=== PATIENT | female | born 1955 | race Caucasian/White ===

== ENCOUNTER 2016-08-12 11:00 | Inpatient (IN) | payer OTHER ==
[2016-08-16] MEDS ORDERED: CEFAZOLIN SODIUM 1 GM in NORMAL SALINE MINI-BAG+ 100 ML IV ONE (10:23)
[2016-08-17] MEDS ORDERED: MORPHINE SULFATE 4 MG/ML SYR ONE (07:11)
[2016-08-17] MEDS ORDERED: ROPIVACAINE HCL 0.5% 30 ML ONE (07:12)
[2016-08-17] MEDS ORDERED: BACITRACIN 50,000 UNITS VIAL IM ONE (07:12)
[2016-08-17] MEDS ORDERED: KETOROLAC TROMETHAMINE 30 MG/ML VIAL ONE (07:12)
[2016-08-17] MEDS ORDERED: MIDAZOLAM HCL 2 MG/2 ML VIAL ONE ×2 (07:14→13:10)
[2016-08-17] MEDS ORDERED: FAMOTIDINE IN SALINE, ISO-OSM 50 ML IV ONE (07:14)
[2016-08-17] MEDS ORDERED: TRANEXAMIC ACID 1,000 MG/10 ML VIAL IV ONE (07:14)
[2016-08-17] MEDS ORDERED: CEFAZOLIN SODIUM 1 GM/10 ML VIAL ONE ×3 (07:14→16:41)
[2016-08-17] MEDS ORDERED: TETRACAINE HCL 1% 20 MG/2 ML AMP ONE ×2 (07:18→13:27)
[2016-08-17] MEDS ORDERED: FENTANYL 100 MCG/2 ML VIAL ONE (07:18)
[2016-08-17] MEDS: MIDAZOLAM HCL 2 MG/2 ML SYR IV ONE ×2 (07:40→13:14)
[2016-08-17] MEDS ORDERED: CEFAZOLIN SODIUM 1 GM in NORMAL SALINE MINI-BAG+ 100 ML IV ONE ×2 (07:42→15:33)
[2016-08-17] MEDS ORDERED: LIDOCAINE HCL 1% 20 ML VIAL SUBCUT ONE ×2 (07:42→15:33)
[2016-08-17] MEDS ORDERED: HYDROmorphone HCL 1 MG/ML SYR ONE (07:44)
[2016-08-17] MEDS ORDERED: FAMOTIDINE IN SALINE, ISO-OSM 20 MG/50 ML PIGGYBACK IV SCH (07:45)
[2016-08-17] MEDS ORDERED: LACTATED RINGERS 1,000 ML IV SCH ×2 (08:00→15:33)
[2016-08-17] MEDS ORDERED: EPHEDrine SULFATE 50 MG/ML VIAL ONE ×3 (08:34→14:22)
[2016-08-17] MEDS ORDERED: TRANEXAMIC ACID 1,000 MG in NORMAL SALINE 100 ML IV SCH ×2 (09:00)
[2016-08-17] MEDS ORDERED: HYDROmorphone HCL 1 MG/ML SYR IV PRN ×2 (15:31→15:33)
[2016-08-17] MEDS ORDERED: NALBUPHINE HCL 10 MG/ML AMP IV PRN ×4 (15:31→18:16)
[2016-08-17] MEDS ORDERED: ONDANSETRON HCL 4 MG/2 ML VIAL IV PRN ×3 (15:31→18:16)
[2016-08-17] MEDS ORDERED: NALOXONE HCL 0.4 MG/ML VIAL IV PRN ×12 (15:31→18:16)
[2016-08-17] MEDS ORDERED: DIPHENHYDRAMINE 25 MG CAPSULE PO PRN ×4 (15:31→18:16)
[2016-08-17] MEDS ORDERED: DIPHENHYDRAMINE 50 MG/ML VIAL IV PRN ×4 (15:31→18:16)
[2016-08-17] MEDS ORDERED: MORPHINE SULFATE 10 MG/ML SYR IV PRN ×2 (15:31→15:33)
[2016-08-17] MEDS ORDERED: FENTANYL 100 MCG/2 ML VIAL IV PRN ×2 (15:31→15:33)
[2016-08-17] MEDS ORDERED: LABETALOL HCL 100 MG/20 ML VIAL IV ONE (16:14)
[2016-08-17] MEDS ORDERED: NORMAL SALINE FLUSH 10 ML ONE (16:41)
[2016-08-17] MEDS ORDERED: ACETAMINOPHEN 325 MG TABLET PO PRN (18:16)
[2016-08-17] MEDS ORDERED: ONDANSETRON HCL 4 MG/2 ML VIAL ONE (18:17)
[2016-08-17] MEDS: CEFAZOLIN SODIUM 1 GM in NORMAL SALINE MINI-BAG+ 100 ML IV SCH (19:47)
[2016-08-17] MEDS: DEXTROSE 5% LACTATED RINGERS 1,000 ML IV SCH (19:59)
[2016-08-17] MEDS: ASCORBIC ACID 500 MG TABLET PO SCH (20:14)
[2016-08-17] MEDS: DOCUSATE SODIUM 100 MG CAPSULE PO SCH (20:14)
[2016-08-18] MEDS: CEFAZOLIN SODIUM 1 GM in NORMAL SALINE MINI-BAG+ 100 ML IV SCH ×2 (03:14→09:32)
[2016-08-18 05:37] LABS: BASOPHILS 0.3 % (0.0-2.0); EOSINOPHILS 0.1 % (0.0-6.0); HEMATOCRIT 31.6 % (36.0-48.0); HEMOGLOBIN 10.1 g/dL (12.0-16.0); LYMPHOCYTES 8.2 % (20.0-40.0); LYMPHOCYTES# 0.7 X 10^3uL (0.8-3.8); MEAN CELL VOLUME 94.7 fL (80.0-100.0); MEAN CORPUS. HGB CONCENTRATION 31.8 g/dL (32.0-36.0); MEAN CORPUSCULAR HEMOGLOBIN 30.1 pg (29.0-35.0); MEAN PLATELET VOLUME 7.6 fL (7.4-10.4); MONOCYTES 5.7 % (2.0-10.0); MONOCYTES# 0.5 X 10^3uL (0.2-1.0); NEUTROPHILS# 7.6 X 10^3uL (2.6-6.7); RED BLOOD COUNT 3.34 X 10^6uL (4.20-6.10); WHITE BLOOD COUNT 8.8 X 10^3uL (3.9-10.7)
[2016-08-18 05:50] LABS: NEUTROPHILS 85.7 % (54.0-75.0)
--- NOTE | 2016-08-18 07:06 | OPERATIVE REPORT ---
DATE OF SURGERY: 08/17/16 SURGEON: Say Horner DO ANESTHESIA: Spinal and general. PREOPERATIVE DIAGNOSIS: Right hip osteoarthritis. POSTOPERATIVE DIAGNOSIS: Right hip osteoarthritis. OPERATION PERFORMED: Right total hip arthroplasty. SPECIMENS REMOVED: Diseased bone and cartilage. ESTIMATED BLOOD LOSS: 200 mL. COMPLICATIONS: None. ORTHOPEDIC IMPLANTS 1. [employer] Biolox Delta hip system modular ceramic head plus 6 neck size 36 head alumina zirconia (ceramic) head. 2. [employer] taper lock hip system lateralized femoral stem, full distal profile porous plasma hydroxyapatite titanium alloy, size 12.5 x 145 mm. 3. [employer] G7 acetabular shell 3-hole porous plasma 52 mm size shell , liner size E. 4. [employer] G7 acetabular liner high wall E1 antioxidant infused technology 36 mm head size liner size E. 5. [employer] G7 acetabular screw 6.5 mm diameter 30 mm length, titanium alloy. PROCEDURE NOTE: The patient was brought to the operating room suite and after administration of spinal and anesthesia the left right extremity was prepped and draped in a sterile fashion. All bony prominences were well padded with 4 pillow between and around the legs. The patient was positioned on the peg board. A curvilinear incision was made in a modified Southern approach over the right posterior hip after first injecting 0.25% bupivacaine with epinephrine. Dissection was carried through the Campers fascia to the IT band gluteal muscular which were split longitudinally in line with their fibers. The trochanteric bursa tissue was removed to reveal the short external rotators which were incised and tagged for later repair. The capsule was Td open and the hip was dislocated. Prior to dislocating the hip, the length of the hip was measured to a agnieszka made on the greater trochanter and a Steinmann inserted superior to the acetabulum in the pelvis. This measurement was 52 mm. The preoperative template measured 60 mm from the femoral head center to the lesser trochanter on its most superior aspect. Utilizing a cutting jig, the femoral neck cut was marked and completed. The head was sized, and the acetabular reamers were used and the appropriate bone defects were made in the acetabulum with optimal version after first removing the labral tissue. The acetabulum was reamed in anatomic version. The trial cup was inserted with the appropriate size , followed by removal, pulsatile irrigation with bacitracin infused normal saline and subsequent implantation of the prosthetic cup. A predrilled and measured screw was inserted in the superior quadrant and a man-hole cover was inserted in the cup. A trial cup liner was secured in place. Retractors were removed and attention was then drawn towards the femoral neck. Appropriate bone defects were made in the femoral neck including box osteotome, sharp canal finder, followed by a series of broaches up to an appropriate size taper fit broach. Trial implants were switched in and out until optimal stability was obtained with a high off-set neck and a plus 6 head. With this inserted, the patient had greater than 45 degrees of internal rotation, with the hip and knee flexed at 90 degrees, and this was with a normal wall acetabulum. The trial implants were removed and the operative site was copiously irrigated with pulsatile bacitracin infused with normal saline. At this point the hip capsule and surrounding soft tissues were injected with a cocktail containing 150 mg of ropivacaine, 15 mg of Ketoralac, 0.3 mg epinephrine, and 4 mg morphine sulfate in a total volume of 60 mL, making up the difference utilizing 0.9% normal saline. The final implants were inserted. The femoral stem was then inserted, followed by the ceramic head. A high wall cup was utilized for added stability in this obese patient. The hip was again taken through a full range of motion and was noted to be exceptionally stable with greater than 60 degrees of internal rotation with the hip and knee flexed in 90 degrees before any subluxation of the head within the acetabulum was palpated with digital monitoring on the prosthetic joint. There was a 2 mm shuck. The hip was copiously irrigated with bacitracin infused with normal saline and closed in a stepwise fashion utilizing #2 Fiberwire for the short external rotators, which were repaired through drill holes through the greater trochanter after the T in the capsule was repaired and sewn shut. The short external rotators were repaired with the hip in external rotation. The remainder of the closure was performed utilizing #2 Fiberwire and #1 pop offs intermittently on the IT band and gluteal fascia. The Campers fascia and subsequent layers were closed with #1 Vicryl, followed by 0 Vicryl, followed by 2-0 Vicryl, followed by 4-0 Monocryl subcutaneously, followed by application of Dermabond on the skin. An occlusive silver impregnated dressing was applied. A Cryo-Cuff was then fitted on the patient's hip, followed by an abduction pillow. The patient was carefully rolled from the OR table onto the hospital bed and transferred to the recovery room in stable condition. The patient did receive 1 gram of tranexamic acid at the time of incision, and received a second gram of tranexamic acid IV at the commencement of closure. AARON
--- NOTE | 2016-08-18 07:22 | RADIOLOGY REPORT ---
Limited portable views of the right hip are compared with prior films dated 12/17. There has been interval placement of right total hip arthroplasty. Components appear intact and in appropriate position. No other change is identified. IMPRESSION: Interval right total hip arthroplasty. [facility]
[2016-08-18] MEDS: HYDROcodone/APAP 5/325 MG 1 TAB TABLET PO PRN ×3 (09:29→17:18)
[2016-08-18] MEDS: FOLIC ACID 1 MG TABLET PO SCH (09:30)
[2016-08-18] MEDS: ASCORBIC ACID 500 MG TABLET PO SCH ×2 (09:30→20:56)
[2016-08-18] MEDS: MULTIVITAMINS THERAPEUTIC 1 TABLET PO SCH (09:31)
[2016-08-18] MEDS: POLYETHYLENE GLYCOL 3350 17 GM POWD.PACK PO SCH (09:31)
[2016-08-18] MEDS: BISACODYL 5 MG TABLET PO SCH (09:32)
[2016-08-18] MEDS: DOCUSATE SODIUM 100 MG CAPSULE PO SCH ×2 (09:32→20:56)
[2016-08-18] MEDS: DEXTROSE 5% LACTATED RINGERS 1,000 ML IV SCH ×2 (10:33→21:24)
[2016-08-18] MEDS ORDERED: CYCLOBENZAPRINE HCL 10 MG TABLET PO PRN (10:50)
[2016-08-18] MEDS: ACETAMINOPHEN 325 MG TABLET PO PRN ×2 (14:56→21:55)
[2016-08-18] MEDS: ENOXAPARIN SODIUM 40 MG/0.4 ML SYR SUBCUT SCH (18:48)
[2016-08-18] MEDS: CYCLOBENZAPRINE HCL 10 MG TABLET PO PRN ×2 (18:48→22:08)
[2016-08-19] MEDS: HYDROcodone/APAP 5/325 MG 1 TAB TABLET PO PRN ×4 (01:35→22:12)
--- NOTE | 2016-08-19 06:15 | PROGRESS NOTE: Orthopedics ---
Orthopedic PN Subjective - Subjective Principal Diagnosis: s/p Right Total Hip Arthroplasty Post-op Day: 1 Interval history: Pt seen and examined at bedside on August 18. Doing well with pain control. Well with physical therapy. Receiving DVT and ABX PPX. Ortho PN Objective Exam - Latest Vital Signs and I&O Latest Vital Signs/I&O: Vital Signs Temp 37.3 C 08/19/16 06:08 Pulse 93 H 08/19/16 06:08 Resp 18 08/19/16 06:08 BP 99/61 08/19/16 06:08 Pulse Ox 92 08/19/16 06:08 Intake & Output 08/18/16 08/19/16 08/19/16 17:59 05:59 17:59 Intake Total 1400 Output Total 2000 Balance -600 Weight 81.647 kg Intake: IV 1000 Right Hand 1000 Oral 400 Output: Urine 2000 Other: Urine Appearance Clear Clear Urine Color Straw Straw Voiding Method Indwelling Catheter Indwelling Catheter - Post-Operative Exam Post-op Day: 1 Dressing Status: dry & intact Distal Pulses: +2 Active Motor: intact Sensation: intact Lio's sign: Negative Calf tenderness: no Weight bearing status: as tolerated - Lab Labs: Laboratory Last Values WBC 8.8 X 10^3uL (3.9-10.7) 08/18/16 05:00 RBC 3.34 X 10^6uL (4.20-6.10) L 08/18/16 05:00 Hgb 10.1 g/dL (12.0-16.0) L 08/18/16 05:00 Hct 31.6 % (36.0-48.0) L 08/18/16 05:00 MCV 94.7 fL (80.0-100.0) 08/18/16 05:00 MCH 30.1 pg (29.0-35.0) 08/18/16 05:00 MCHC 31.8 g/dL (32.0-36.0) L 08/18/16 05:00 RDW 14.0 % (11.5-14.5) 08/18/16 05:00 Plt Count 435 X 10^3uL (130-440) 08/18/16 05:00 MPV 7.6 fL (7.4-10.4) 08/18/16 05:00 Neutrophils % 85.7 % (54.0-75.0) H 08/18/16 05:00 Lymphocytes % 8.2 % (20.0-40.0) L 08/18/16 05:00 Eosinophils % 0.1 % (0.0-6.0) 08/18/16 05:00 Basophils % 0.3 % (0.0-2.0) 08/18/16 05:00 Neutrophils # 7.6 X 10^3uL (2.6-6.7) H 08/18/16 05:00 Lymphocytes # 0.7 X 10^3uL (0.8-3.8) L 08/18/16 05:00 Monocytes 5.7 % (2.0-10.0) 08/18/16 05:00 Monocytes # 0.5 X 10^3uL (0.2-1.0) 08/18/16 05:00 Eosinophils # 0.0 X 10^3uL (0.0-0.4) 08/18/16 05:00 Basophils # 0.0 X 10^3uL (0.0-0.1) 08/18/16 05:00 Capillary INR 0.9 (0.8-1.2) 08/17/16 06:15 - Allied Health Notes Allied health notes reviewed: nursing, PT Assessment and Plan-Ortho - Date of Encounter Date of Encounter: 08/19/16 (1) S/P total hip arthroplasty Status: Acute Assessment and plan: Pt will continue with PT. Oral analgesia. DVT PPX. OOB TID. Ambulate. d/c Markham. Current Visit: Yes Quality Questions - VTE Prophylaxis Assessment VTE Present on Admission?: No Patient at risk for venous thromboembolism?: Yes VTE Risk Level: High Risk VTE Medical Contraindication: Contraindicated (1) S/P total hip arthroplasty Qualifiers: Laterality: right Qualified Code(s): Z96.641 - Presence of right artificial hip joint
[2016-08-19 07:24] LABS: BASOPHILS 0.3 % (0.0-2.0); EOSINOPHILS 0.3 % (0.0-6.0); HEMATOCRIT 27.8 % (36.0-48.0); HEMOGLOBIN 9.5 g/dL (12.0-16.0); LYMPHOCYTES 7.2 % (20.0-40.0); LYMPHOCYTES# 0.8 X 10^3uL (0.8-3.8); MEAN CELL VOLUME 95.1 fL (80.0-100.0); MEAN CORPUS. HGB CONCENTRATION 34.2 g/dL (32.0-36.0); MEAN CORPUSCULAR HEMOGLOBIN 32.5 pg (29.0-35.0); MEAN PLATELET VOLUME 7.7 fL (7.4-10.4); MONOCYTES 5.5 % (2.0-10.0); MONOCYTES# 0.6 X 10^3uL (0.2-1.0); NEUTROPHILS 86.7 % (54.0-75.0); NEUTROPHILS# 9.5 X 10^3uL (2.6-6.7); RED BLOOD COUNT 2.93 X 10^6uL (4.20-6.10); WHITE BLOOD COUNT 10.9 X 10^3uL (3.9-10.7)
[2016-08-19 08:00] LABS: RED CELL DISTRIBUTION WIDTH 14.1 % (11.5-14.5)
[2016-08-19] MEDS: ASCORBIC ACID 500 MG TABLET PO SCH ×2 (08:31→21:46)
[2016-08-19] MEDS: DOCUSATE SODIUM 100 MG CAPSULE PO SCH ×2 (08:31→21:46)
[2016-08-19] MEDS: MULTIVITAMINS THERAPEUTIC 1 TABLET PO SCH (08:31)
[2016-08-19] MEDS: FOLIC ACID 1 MG TABLET PO SCH (08:31)
[2016-08-19] MEDS: BISACODYL 5 MG TABLET PO SCH (08:31)
[2016-08-19] MEDS: ENOXAPARIN SODIUM 40 MG/0.4 ML SYR SUBCUT SCH (08:31)
[2016-08-19] MEDS: POLYETHYLENE GLYCOL 3350 17 GM POWD.PACK PO SCH (08:33)
[2016-08-19] MEDS: CYCLOBENZAPRINE HCL 10 MG TABLET PO PRN ×2 (10:57→21:46)
--- NOTE | 2016-08-19 17:38 | PROGRESS NOTE: Orthopedics ---
Orthopedic PN Subjective - Subjective Principal Diagnosis: s/p LILLIAN Post-op Day: 2 Interval history: The patient was seen and examined this morning. The patient has been doing well. She has been ambulating well with physical therapy. Pain has been well controlled. Receiving DVT PPX. Ortho PN Objective Exam - Latest Vital Signs and I&O Latest Vital Signs/I&O: Vital Signs Temp 37.7 C H 08/19/16 15:00 Pulse 78 08/19/16 15:00 Resp 20 08/19/16 15:00 BP 115/68 08/19/16 15:00 Pulse Ox 88 L 08/19/16 15:00 Intake & Output 08/18/16 08/19/16 08/19/16 17:59 05:59 17:59 Intake Total 1400 2883 Output Total 2000 1050 0 Balance -600 1833 0 Weight 81.647 kg Intake: IV 1000 1982 Right Hand 1000 1982 Oral 400 900 Output: Urine 2000 1050 Stool 0 0 Other: Urine Appearance Clear Clear Clear Urine Color Straw Yellow Yellow Voiding Method Indwelling Catheter Indwelling Catheter Indwelling Catheter - Post-Operative Exam Post-op Day: 2 Dressing Status: dry & intact Drainage Amount: none Distal Pulses: +2 Active Motor: intact Sensation: intact Lio's sign: Negative Calf tenderness: no Weight bearing status: as tolerated - Lab Labs: Laboratory Last Values WBC 10.9 X 10^3uL (3.9-10.7) H 08/19/16 05:00 RBC 2.93 X 10^6uL (4.20-6.10) L 08/19/16 05:00 Hgb 9.5 g/dL (12.0-16.0) L 08/19/16 05:00 Hct 27.8 % (36.0-48.0) L 08/19/16 05:00 MCV 95.1 fL (80.0-100.0) 08/19/16 05:00 MCH 32.5 pg (29.0-35.0) 08/19/16 05:00 MCHC 34.2 g/dL (32.0-36.0) 08/19/16 05:00 RDW 14.1 % (11.5-14.5) 08/19/16 05:00 Plt Count 358 X 10^3uL (130-440) 08/19/16 05:00 MPV 7.7 fL (7.4-10.4) 08/19/16 05:00 Neutrophils % 86.7 % (54.0-75.0) H 08/19/16 05:00 Lymphocytes % 7.2 % (20.0-40.0) L 08/19/16 05:00 Eosinophils % 0.3 % (0.0-6.0) 08/19/16 05:00 Basophils % 0.3 % (0.0-2.0) 08/19/16 05:00 Neutrophils # 9.5 X 10^3uL (2.6-6.7) H 08/19/16 05:00 Lymphocytes # 0.8 X 10^3uL (0.8-3.8) 08/19/16 05:00 Monocytes 5.5 % (2.0-10.0) 08/19/16 05:00 Monocytes # 0.6 X 10^3uL (0.2-1.0) 08/19/16 05:00 Eosinophils # 0.0 X 10^3uL (0.0-0.4) 08/19/16 05:00 Basophils # 0.0 X 10^3uL (0.0-0.1) 08/19/16 05:00 Capillary INR 0.9 (0.8-1.2) 08/17/16 06:15 - Allied Health Notes Allied health notes reviewed: nursing, PT Assessment and Plan-Ortho - Date of Encounter Date of Encounter: 08/19/16 (1) S/P total hip arthroplasty Status: Acute Assessment and plan: Pt will continue with PT. Oral analgesia. DVT PPX. OOB TID. Ambulate TID. Current Visit: Yes (1) S/P total hip arthroplasty Qualifiers: Laterality: right Qualified Code(s): Z96.641 - Presence of right artificial hip joint
[2016-08-19] MEDS: ACETAMINOPHEN 325 MG TABLET PO PRN (18:53)
[2016-08-20 06:04] LABS: BASOPHILS 0.4 % (0.0-2.0); EOSINOPHILS 0.9 % (0.0-6.0); EOSINOPHILS# 0.1 X 10^3uL (0.0-0.4); HEMATOCRIT 25.1 % (36.0-48.0); HEMOGLOBIN 8.5 g/dL (12.0-16.0); LYMPHOCYTES 10.3 % (20.0-40.0); MEAN CELL VOLUME 94.4 fL (80.0-100.0); MEAN CORPUS. HGB CONCENTRATION 33.7 g/dL (32.0-36.0); MEAN CORPUSCULAR HEMOGLOBIN 31.9 pg (29.0-35.0); MEAN PLATELET VOLUME 7.7 fL (7.4-10.4); MONOCYTES 5.4 % (2.0-10.0); MONOCYTES# 0.5 X 10^3uL (0.2-1.0); NEUTROPHILS# 8.2 X 10^3uL (2.6-6.7); RED BLOOD COUNT 2.66 X 10^6uL (4.20-6.10); WHITE BLOOD COUNT 9.9 X 10^3uL (3.9-10.7)
[2016-08-20 06:40] LABS: RED CELL DISTRIBUTION WIDTH 13.9 % (11.5-14.5)
[2016-08-20] MEDS: MULTIVITAMINS THERAPEUTIC 1 TABLET PO SCH (08:11)
[2016-08-20] MEDS: DOCUSATE SODIUM 100 MG CAPSULE PO SCH ×2 (08:11→21:01)
[2016-08-20] MEDS: ASCORBIC ACID 500 MG TABLET PO SCH ×2 (08:11→21:01)
[2016-08-20] MEDS: FOLIC ACID 1 MG TABLET PO SCH (08:12)
[2016-08-20] MEDS: BISACODYL 5 MG TABLET PO SCH (08:12)
[2016-08-20] MEDS: HYDROcodone/APAP 5/325 MG 1 TAB TABLET PO PRN ×2 (08:13→14:11)
[2016-08-20] MEDS: ENOXAPARIN SODIUM 40 MG/0.4 ML SYR SUBCUT SCH (08:13)
[2016-08-20] MEDS: POLYETHYLENE GLYCOL 3350 17 GM POWD.PACK PO SCH (08:13)
--- NOTE | 2016-08-20 13:13 | PROGRESS NOTE: Orthopedics ---
Orthopedic PN Subjective - Subjective Principal Diagnosis: s/p Right LILLIAN Post-op Day: 3 Interval history: the patient has been doing well. She is still having some difficulty with transfers. Ambulating well. Pain is controlled. Markham discontinued. Ortho PN Objective Exam - Latest Vital Signs and I&O Latest Vital Signs/I&O: Vital Signs Temp 36.8 C 08/20/16 11:00 Pulse 82 08/20/16 11:00 Resp 12 08/20/16 11:00 BP 117/67 08/20/16 11:00 Pulse Ox 97 08/20/16 11:00 Intake & Output 08/19/16 08/20/16 08/20/16 17:59 05:59 17:59 Intake Total 1200 1010 Output Total 1000 1900 0 Balance 200 -890 0 Intake: IV 10 Right Hand 10 Oral 1200 1000 Output: Urine 1000 1900 Stool 0 0 0 Other: Urine Appearance Clear Clear Clear Urine Color Yellow Pale Pale Voiding Method Indwelling Catheter Indwelling Catheter Toilet - Post-Operative Exam Post-op Day: 3 Dressing Status: dry & intact Distal Pulses: +2 Active Motor: intact Sensation: intact Lio's sign: Negative Calf tenderness: no Weight bearing status: as tolerated - Lab Labs: Laboratory Last Values WBC 9.9 X 10^3uL (3.9-10.7) 08/20/16 05:00 RBC 2.66 X 10^6uL (4.20-6.10) L 08/20/16 05:00 Hgb 8.5 g/dL (12.0-16.0) L 08/20/16 05:00 Hct 25.1 % (36.0-48.0) L 08/20/16 05:00 MCV 94.4 fL (80.0-100.0) 08/20/16 05:00 MCH 31.9 pg (29.0-35.0) 08/20/16 05:00 MCHC 33.7 g/dL (32.0-36.0) 08/20/16 05:00 RDW 13.9 % (11.5-14.5) 08/20/16 05:00 Plt Count 341 X 10^3uL (130-440) 08/20/16 05:00 MPV 7.7 fL (7.4-10.4) 08/20/16 05:00 Neutrophils % 83.0 % (54.0-75.0) H 08/20/16 05:00 Lymphocytes % 10.3 % (20.0-40.0) L 08/20/16 05:00 Eosinophils % 0.9 % (0.0-6.0) 08/20/16 05:00 Basophils % 0.4 % (0.0-2.0) 08/20/16 05:00 Neutrophils # 8.2 X 10^3uL (2.6-6.7) H 08/20/16 05:00 Lymphocytes # 1.0 X 10^3uL (0.8-3.8) 08/20/16 05:00 Monocytes 5.4 % (2.0-10.0) 08/20/16 05:00 Monocytes # 0.5 X 10^3uL (0.2-1.0) 08/20/16 05:00 Eosinophils # 0.1 X 10^3uL (0.0-0.4) 08/20/16 05:00 Basophils # 0.0 X 10^3uL (0.0-0.1) 08/20/16 05:00 Capillary INR 0.9 (0.8-1.2) 08/17/16 06:15 - Allied Health Notes Allied health notes reviewed: nursing, PT Assessment and Plan-Ortho - Date of Encounter Date of Encounter: 08/20/16 (1) S/P total hip arthroplasty Status: Acute Assessment and plan: Pt will continue with PT. Oral analgesia. DVT PPX. OOB TID. Ambulate TID. Likely D/C home in AM tomorrow. Current Visit: Yes (1) S/P total hip arthroplasty Qualifiers: Laterality: right Qualified Code(s): Z96.641 - Presence of right artificial hip joint
[2016-08-20] MEDS: CYCLOBENZAPRINE HCL 10 MG TABLET PO PRN ×2 (14:18→20:36)
[2016-08-20 19:10] VITALS: RESP 16
[2016-08-21] MEDS: CYCLOBENZAPRINE HCL 10 MG TABLET PO PRN ×2 (07:34→12:44)
--- NOTE | 2016-08-21 08:40 | DC SUMMARY: Orthopedic Note ---
Discharge Summary: Surg/OB Provider: Date of Admission: 08/17/16 Admitting Provider: BOB WHITEHEAD DO Attending Provider: BOB WHITEHEAD DO Discharging Provider: BOB WHITEHEAD DO Primary Care Provider: Discharge Date: 08/21/16 - Diagnosis (1) S/P total hip arthroplasty Status: Acute Qualifiers: Laterality: right Qualified Code(s): Z96.641 - Presence of right artificial hip joint Hospital Course: Ms. KIM is a 61 year old female who underwent a total hip arthroplasty. The patient received appropriate postoperative DVT and antibiotic prophylaxis. She was up and ambulating well with physical therapy. She was tolerating and had bowel and bladder function which was normal. Discharge - Patient/Caregiver Discharge Instructions Activity Level: wbat Diet: regular Overall discharge status: patient is progressing back to baseline Home Medications: Enoxaparin Sodium [LOVENOX 40mg/0.4mL*] 40 mg SUBCUT DAILY #10 syr oxyCODONE HCL/ACETAMINOPHEN [Percocet 5-325 mg Tablet] 1 - 2 tab PO Q6H PRN #60 tablet PRN Reason: Pain, Moderate Disposition: HOME, SELF-CARE Orthopedic: Discharge Phy Exam - Latest Vital Signs and I&O Latest Vital Signs/I&O: Vital Signs Temp 36.6 C 08/21/16 06:47 Pulse 68 08/21/16 06:47 Resp 16 08/21/16 08:22 BP 103/68 08/21/16 06:47 Pulse Ox 92 08/21/16 08:22 Intake & Output 08/20/16 08/21/16 08/21/16 17:59 05:59 17:59 Intake Total 1690 640 Output Total 300 425 0 Balance 1390 215 0 Weight 81.647 kg Intake: Oral 1690 640 Output: Urine 300 425 Stool 0 0 Other: Urine Appearance Clear Clear Clear Urine Color Pale Yellow Yellow Stool Size Large Large Stool Characteristics Formed Brown Brown Brown Voiding Method Toilet Toilet Toilet # Voids 4 # Bowel Movements 1 - Post-Operative Exam Post-op Day: 4 Dressing Status: dry & intact Distal Pulses: +2 Active Motor: intact Sensation: intact Lio's sign: Negative Calf tenderness: no Weight bearing status: as tolerated - Allied Health Notes Allied health notes reviewed: nursing, PT Discharge Summary Data - Medication History Medication History: Home Medications Duloxetine [Cymbalta*] 60 mg PO DAILY 08/18/16 Gabapentin [Neurontin*] 300 mg PO HS PRN 08/18/16 Levothyroxine [Synthroid] 125 mcg PO DAILY 08/18/16 Zolpidem Tartrate [Ambien] 10 mg PO HS PRN 08/18/16 oxyCODONE HCL/ACETAMINOPHEN [Percocet 5-325 mg Tablet] 1 - 2 tab PO Q6H PRN Inpatient Medications 08/17/16 18:16 HYDROcodone/APAP 5/325 MG [Monarch] 1 - 2 tab PO Q3H PRN Ondansetron HCl [Zofran] 4 mg IV Q4H PRN 08/17/16 19:00 Dextrose 5% Lactated Ringers [D5 Lr 1000 ml] 1,000 ml IV CONT 08/17/16 19:23 oxyCODONE HCL IR [Oxy Ir] 5 - 10 mg PO Q4H PRN 08/17/16 21:00 Ascorbic Acid [Vitamin C] 500 mg PO BID Docusate Sodium [Colace] 100 mg PO BID 08/18/16 09:00 Bisacodyl [Dulcolax] 10 mg PO DAILY Folic Acid [Folate] 1 mg PO DAILY Multivitamins,Therapeutic [Thera] 1 tab PO DAILY Polyethylene Glycol 3350 [miraLAX] 17 gm PO DAILY 08/18/16 11:08 Acetaminophen [Tylenol] 650 mg PO Q4H PRN 08/18/16 18:00 Enoxaparin Sodium [Lovenox] 40 mg SUBCUT DAILY 08/18/16 18:06 Cyclobenzaprine HCl [Flexeril] 10 mg PO TID PRN Procedures and tests throughout hospitalization: Completed Lab Orders 08/17/16 06:15 INR W/ CAPI DRAW [HEM] Routine 08/18/16 05:00 CBC AUTO DIF, MDIF/RMOR IF IND [HEM] AMDRAW 08/19/16 05:00 CBC AUTO DIF, MDIF/RMOR IF IND [HEM] AMDRAW 08/20/16 05:00 CBC AUTO DIF, MDIF/RMOR IF IND [HEM] AMDRAW Completed Imaging Orders 08/17/16 18:12 HIP;W/PEL 2-[place] [address] [RAD] Routine Pending Orders 08/16/16 10:23 Resuscitation Status Routine 08/17/16 07:42 Insert Peripheral IV ONCE 08/17/16 15:31 Marquise hugger if temp <34 C PRN Did pt have a spinal/epidural? . Titrate Oxygen TITRATE B/W 90-95% Warm blankets if temp<36 C PRN 08/17/16 15:32 Maintain IV access post spinal CONTINUOUS Monitor End Tidal CO2 CONTINUOUS Narcan @ bedside x24h after sp .x24hrs Oxygen by Nasal Cannula TITRATE TO >90% Vital Signs Q1HX12,Q2H 08/17/16 15:33 Maintain IV access post spinal CONTINUOUS Monitor End Tidal CO2 CONTINUOUS Narcan @ bedside x24h after sp .x24hrs Oxygen by Nasal Cannula TITRATE TO >90% Vital Signs Q1HX12,Q2H 08/17/16 18:16 Admit: Inpatient Routine Activity: Hip Abductor Pillow WHILE IN BED Activity: OOB with Assist TID Activity: Turn and position Q2H Apply ice to affected area . Circulatory Sensory Motor Asse 0000,0400,0800,1200,1600,2000 Clinical Pathway: updt in cht QSHIFT Incentive Spirometry Q1H Intake and Output QSHIFT I&O Notify Physician . Oxygen by Nasal Cannula TITRATE TO >90% Physician to change dressing PRN Sequential Compression Device IN BED OR CHAIR OSKAR Hose . Total Hip Precaution CONTINUOUS Turn, Cough, and Deep Breathe Q2H Vital Signs ROUTINE VITALS (Q4H) Chair Upholsterer Consult [CM] Routine HYDROcodone/APAP 5/325 MG [Monarch] 1 - 2 tab PO Q3H PRN Ondansetron HCl [Zofran] 4 mg IV Q4H PRN 08/17/16 19:00 Dextrose 5% Lactated Ringers [D5 Lr 1000 ml] 1,000 ml IV CONT 08/17/16 19:23 oxyCODONE HCL IR [Oxy Ir] 5 - 10 mg PO Q4H PRN 08/17/16 21:00 Ascorbic Acid [Vitamin C] 500 mg PO BID Docusate Sodium [Colace] 100 mg PO BID 08/17/16 Dinner Regular [DIET] 08/18/16 09:00 Bisacodyl [Dulcolax] 10 mg PO DAILY Folic Acid [Folate] 1 mg PO DAILY Multivitamins,Therapeutic [Thera] 1 tab PO DAILY Polyethylene Glycol 3350 [miraLAX] 17 gm PO DAILY 08/18/16 11:08 Acetaminophen [Tylenol] 650 mg PO Q4H PRN 08/18/16 11:39 PELVIS X-RAY;1 OR 2V 70079 [RAD] Routine 08/18/16 18:00 Enoxaparin Sodium [Lovenox] 40 mg SUBCUT DAILY 08/18/16 18:06 Cyclobenzaprine HCl [Flexeril] 10 mg PO TID PRN 08/20/16 08:15 OCCULT BLOOD (1-3 SAMPLES) []
[2016-08-21] MEDS: MULTIVITAMINS THERAPEUTIC 1 TABLET PO SCH (09:17)
[2016-08-21] MEDS: FOLIC ACID 1 MG TABLET PO SCH (09:17)
[2016-08-21] MEDS: ASCORBIC ACID 500 MG TABLET PO SCH (09:17)
[2016-08-21] MEDS: BISACODYL 5 MG TABLET PO SCH (09:18)
[2016-08-21] MEDS: ENOXAPARIN SODIUM 40 MG/0.4 ML SYR SUBCUT SCH (09:18)
[2016-08-21] MEDS: POLYETHYLENE GLYCOL 3350 17 GM POWD.PACK PO SCH (09:19)
[2016-08-21] MEDS: DOCUSATE SODIUM 100 MG CAPSULE PO SCH (09:19)
[2016-08-21 09:36] LABS: BASOPHILS 0.4 % (0.0-2.0); EOSINOPHILS 1.5 % (0.0-6.0); EOSINOPHILS# 0.2 X 10^3uL (0.0-0.4); HEMATOCRIT 27.3 % (36.0-48.0); HEMOGLOBIN 9.2 g/dL (12.0-16.0); LYMPHOCYTES 12.3 % (20.0-40.0); LYMPHOCYTES# 1.2 X 10^3uL (0.8-3.8); MEAN CELL VOLUME 94.6 fL (80.0-100.0); MEAN CORPUS. HGB CONCENTRATION 33.7 g/dL (32.0-36.0); MEAN CORPUSCULAR HEMOGLOBIN 31.9 pg (29.0-35.0); MEAN PLATELET VOLUME 7.9 fL (7.4-10.4); MONOCYTES 5.1 % (2.0-10.0); MONOCYTES# 0.5 X 10^3uL (0.2-1.0); NEUTROPHILS 80.7 % (54.0-75.0); NEUTROPHILS# 8.2 X 10^3uL (2.6-6.7); RED BLOOD COUNT 2.88 X 10^6uL (4.20-6.10); RED CELL DISTRIBUTION WIDTH 13.4 % (11.5-14.5); WHITE BLOOD COUNT 10.1 X 10^3uL (3.9-10.7)
[2016-08-21] MEDS: HYDROcodone/APAP 5/325 MG 1 TAB TABLET PO PRN (10:16)
[2016-08-21 11:39] VITALS: BP 101/60; PULSE 90; TEMP 98.6; O2SAT 94
--- NOTE | 2016-08-27 08:06 | RADIOLOGY REPORT ---
Additional views of the pelvis were obtained to correlate with images from the previous date. Again noted is the right hip arthroplasty. There has been no appreciable change. IMPRESSION: Stable right hip arthroplasty. MTDD
--- NOTE | 2016-08-27 09:52 | PREOPERATIVE H&P ---
History of Present Illness (Say Horner DO; 08/05/2016 2:36 PM) The patient is a 61 year old female. Patient presents complaining of persistent right hip pain despite conservative treatments and an intra-articular steroid injection. I would like to proceed with total hip arthroplasty. Allergies (Yue Jones RN; 08/05/2016 2:06 PM) No Known Drug Yiszyexkp05/17/2014 NKA (Marked as Inactive) Family History (Yue Jones RN; 08/05/2016 2:06 PM) Father History of macular degeneration. Mother History of glaucoma and retinal detachment. Heart Disease Father. Niece Breast CA diagnosed age 37 Sister 2 DJD; hypothyroidism Brother HTN; severe DJD; melanoma; lung CA age 70; cigar smoker Sister 1 A fib; DJD; hypothyroidism Cancer Social History (Yue Jones RN; 08/05/2016 2:06 PM) Alcohol Use Does not drink alcohol. Tobacco Use Former smoker, Age quit smoking. 31. Smoked age 14-early 30s: 2-3 packs per week. Medication History (Yue Jones RN; 08/05/2016 2:06 PM) Ambien (10MG Tablet, 1 Oral at bedtime as needed, Taken starting 01/23/2014) Active. (Faxed to [facility] with Sanchez's sig.) Gabapentin (100MG Capsule, 1 Oral at bedtime, Taken starting 11/14/2013) Active. Synthroid (125MCG Tablet, 1 Oral daily, Taken starting 02/21/2013) Active. ProctoCare-HC (2.5% Cream, apply thinly to area Rectal two times daily, as needed, Taken starting 12/06/2012) Active. Cymbalta (30MG Capsule DR Part, 1 Oral daily, Taken starting 07/04/2013) Active. (Take 1 tablet daily x 1 week and then increase to 2 tablets daily if well-tolerated.) Oxycodone-Acetaminophen (5-325MG Tablet, 1 (one) Oral every six hours, as needed, Taken starting 08/04/2016) Active. Tramadol-Acetaminophen (37.5-325MG Tablet, 1-2 Tablet Oral every six hours, as needed, Taken starting 05/11/2016) Discontinued. Zorvolex (35MG Capsule, 1 (one) Capsule Oral every eight hours, as needed, Taken starting 06/29/2016) Active. Osteo Bi-Flex Adv Triple St (2 Oral daily) Active. Aleve (220MG Capsule, Oral daily) Active. Medications Reconciled Review of Systems (Say Siri PAIGE; 08/05/2016 2:36 PM) General Not Present- Chills and Fever. Skin Not Present- Erythema, Skin Color Changes and Skin Problems. HEENT Not Present- Sleep Apnea. Neck Not Present- Neck Pain. Respiratory Not Present- Cough and Shortness of Breath. Cardiovascular Not Present- Chest Pain, Difficulty Breathing On Exertion, Fainting and Leg Pain and/or Swelling. Gastrointestinal Not Present- Abdominal Pain, Nausea and Vomiting. Female Genitourinary Not Present- Painful Urination. Musculoskeletal Not Present- Decreased Range of Motion, Joint Pain, Joint Stiffness, Joint Swelling, Muscle Pain and Muscle Weakness. Neurological Not Present- Dizziness, Focal Neurological Symptoms, Numbness in extremities, Trouble walking and Weakness. Psychiatric Not Present- Anorexia, Anxiety and Depression. Endocrine Not Present- Weight Loss. Hematology Not Present- Bleeding Problems, DVT and Easy Bruising. Vitals (Yue Jones RN; 08/05/2016 2:05 PM) 08/05/2016 2:04 PM Pulse: 73 (Regular) Resp.: 16 (Unlabored) BP: 109/73 (Sitting, Left Arm, Standard) Physical Exam (Say Horner DO; 08/05/2016 2:38 PM) Physical examination of the RIGHT hip demonstrates no skin changes or swelling. Stinchfield test is positive. Hip flexion is to 120 with no some discomfort. Internal and External rotation are 10 and 50 respectively at 90 of flexion. Abduction is 45. Impingement test is positive. Iliotibial band is non tender. Trochanteric bursa is non tender. Assessment & Plan (Say Horner DO; 08/05/2016 2:39 PM) Primary osteoarthritis of right hip (M16.11) Impression: After educating the patient regarding treatment options with their associated risks and benefits, the patient elected to proceed with surgical treatment of the injury/pathology with RIGHT TOTAL HIP ARTHRPLASTY. The risks and benefits of the specific procedure were explained and all questions and concerns were addressed and answered. Post operative rehabilitation requirements and expectations for optimal outcome were reviewed and the patient confirmed understanding these and committed to compliance. All questions answered. The patient will be optimized medically by consultation with their primary care physician prior to their procedure. Signed by Say Horner DO (08/05/2016 2:40 PM) There are no interval changes. Signed Say Horner DO 08/17/16 [facility]
== END 2016-08-21 08:42 | disposition home or self-care (01) | DRG 470 ==
LOC: IN 08-17 05:51
PROVIDERS: ADMIT Orthopaedic Surgery; ATTEND Orthopaedic Surgery
PROC: 0SR9039 Replacement of Right Hip Joint with Ceramic Synthetic Substitute, Cemented, Open Approach (ICD-10-PCS; principal; 2016-08-17)
DX: M16.11 Unilateral primary osteoarthritis, right hip (principal); G47.00 Insomnia, unspecified; E03.9 Hypothyroidism, unspecified; F32.9 Major depressive disorder, single episode, unspecified; M50.90 Cervical disc disorder, unspecified, unspecified cervical region; Z79.899 Other long term (current) drug therapy
CPT/HCPCS: 36415; 72170; 82270; 85025; 85610; 94667; J0171; J0690; J1170; J1650; J1885; J2250; J2270; J2405; J2795

== ENCOUNTER 2016-09-04 16:37 | Observation (INO) | payer OTHER ==
[2016-09-04 17:09] LABS: MONOCYTES# 0.3 X 10^3uL (0.2-1.0); NEUTROPHILS# 5.6 X 10^3uL (2.6-6.7)
[2016-09-04] MEDS ORDERED: ONDANSETRON HCL 4 MG/2 ML VIAL ONE (17:09)
[2016-09-04 17:18] LABS: BASOPHIL# 0.1 X 10^3uL (0.0-0.1); BASOPHILS 1.3 % (0.0-2.0); EOSINOPHILS 0.6 % (0.0-6.0); HEMATOCRIT 36.2 % (36.0-48.0); HEMOGLOBIN 12.5 g/dL (12.0-16.0); LYMPHOCYTES 13.8 % (20.0-40.0); MEAN CELL VOLUME 94.5 fL (80.0-100.0); MEAN CORPUS. HGB CONCENTRATION 34.6 g/dL (32.0-36.0); MEAN CORPUSCULAR HEMOGLOBIN 32.7 pg (29.0-35.0); MEAN PLATELET VOLUME 7.2 fL (7.4-10.4); MONOCYTES 3.6 % (2.0-10.0); NEUTROPHILS 80.7 % (54.0-75.0); RED BLOOD COUNT 3.83 X 10^6uL (4.20-6.10); RED CELL DISTRIBUTION WIDTH 14.4 % (11.5-14.5)
[2016-09-04] MEDS ORDERED: LORazepam 2 MG/ML INJ ONE (17:19)
[2016-09-04 17:33] LABS: BLOOD UREA NITROGEN 12 mg/dL (7-17); CALCIUM 10.3 mg/dL (8.4-10.2); CHLORIDE 102 mmol/L (98-107); CREATININE 0.8 mg/dL (0.5-1.0); EST GLOMERULAR FILTRATION RATE > 60 mL/min; GLUCOSE 123 mg/dL (70-100); POTASSIUM 4.2 mmol/L (3.5-5.1); SODIUM 138 mmol/L (137-145)
[2016-09-04] MEDS ORDERED: DIPHENHYDRAMINE 50 MG/ML VIAL ONE (17:56)
[2016-09-04] MEDS ORDERED: cloNIDine HCL 0.1 MG TABLET PO ONE (18:29)
[2016-09-04] MEDS ORDERED: NORMAL SALINE 250 ML IV ONE (19:44)
[2016-09-04 19:51] LABS: HEMATOCRIT 29.4 % (36.0-48.0); MEAN CELL VOLUME 95.6 fL (80.0-100.0); MEAN CORPUS. HGB CONCENTRATION 32.8 g/dL (32.0-36.0); MEAN CORPUSCULAR HEMOGLOBIN 31.4 pg (29.0-35.0); MEAN PLATELET VOLUME 6.9 fL (7.4-10.4); PLATELET COUNT 974 X 10^3uL (130-440); RED BLOOD COUNT 3.08 X 10^6uL (4.20-6.10); RED CELL DISTRIBUTION WIDTH 14.3 % (11.5-14.5); WHITE BLOOD COUNT 6.3 X 10^3uL (3.9-10.7)
[2016-09-04 20:04] LABS: HEMOGLOBIN 9.7 g/dL (12.0-16.0)
[2016-09-04 20:05] LABS: BAND% (Manual) 1 % (0.0-1.0); LYMPHOCYTE % (Manual) 7 % (20.0-40.0); NEUTROPHIL % (Manual) 89 % (54.0-75.0)
[2016-09-04 20:06] LABS: MONOCYTE % (Manual) 3 % (2.0-10.0); PLATELET ESTIMATE INCREASED
[2016-09-04] MEDS ORDERED: MAG-AL PLUS XS SUSP 30 ML UDC PO PRN (20:33)
[2016-09-04] MEDS ORDERED: POLYETHYLENE GLYCOL 3350 17 GM POWD.PACK PO PRN (20:33)
[2016-09-04] MEDS ORDERED: ZOLPIDEM TARTRATE 5 MG TABLET PO PRN (20:33)
[2016-09-04] MEDS ORDERED: ACETAMINOPHEN 325 MG TABLET PO PRN (20:33)
[2016-09-04] MEDS ORDERED: HOME MEDICATION LIST NEEDED 1 EA EACH MISC ONE (20:33)
[2016-09-04] MEDS ORDERED: LORazepam 2 MG/ML INJ IV PRN (20:39)
[2016-09-04] MEDS ORDERED: HALOPERIDOL 5 MG/ML VIAL IV PRN (20:39)
[2016-09-04] MEDS ORDERED: IRON SUCROSE COMPLEX 200 MG in NORMAL SALINE 100 ML IV ONE (20:57)
--- NOTE | 2016-09-04 21:09 | ER PHYSICIAN DOCUMENTATION ---
Physician Documentation [facility] [place], [place] Name:Yajaira Jeong Age:61 yrs Sex:Female :1955 Arrival Date:09/04/2016 Time:16:37 Bed4 Private MD:Meño Lewis ED, John Disposition: 09/04/16 20:24 Admit ordered for Esteban Watters. Preliminary diagnosis are Vomiting - Dehydration, Nausea - : Intractable. - Bed requested for Medical/Surgical. - Condition is Fair. - Problem is new. - Symptoms have improved. 23 HR OBS Yes HPI: 09/04 18:34 This 61 yrs old Female presents to ER via Private Vehicle with complaints of jm Nausea/Vomiting. 18:34 The patient presents to the emergency department with nausea, with vomiting, without jm any complaints of abdominal pain. Onset: The symptom(s)/episode began/occurred acutely, today. Possible causes: opioid w/d. The symptoms are alleviated by nothing. Associated signs and symptoms: Pertinent negatives: diarrhea, fever. Severity of symptoms: in the emergency department the symptoms are unchanged. The patient has not experienced similar symptoms in the past. The patient has not recently seen a physician. 61 yo F s/p R hip surgery/replacement 2 weeks ago, and now off opioids for 2 days here for n/v. Pt cannot hold any water down and feels mildly anxious. . Historical: - Allergies: No known drug Allergies; - Home Meds: 1. Cymbalta oral 2. levothyroxine oral 3. Voltaren Oral - PMHx: THYROID PROBLEM; - PSHx: KNEE SURGERY; HIP SURGERY; gastric bypass; - Tetanus: < 10 years. - Ebola Screening: : Patient negative for fever greater than or equal to 101.5 degrees Fahrenheit, and additional compatible Ebola Virus Disease symptoms. Patient denies exposure to infectious person. Patient denies travel to an Ebola-affected area in the 21 days before illness onset. No symptoms or risks identified at this time. . - Immunization history: Flu Vaccine < 1 year. - Social history: Smoking status: Patient states was never smoker of tobacco. ROS: 18:38 Constitutional: Positive for fatigue, malaise. jm 18:38 ENT: Negative for rhinorrhea, sinus congestion, sinus pain, sore throat. 18:38 Cardiovascular: Negative for chest pain. 18:38 Respiratory: Negative for cough, shortness of breath. 18:38 Abdomen/GI: Positive for nausea, vomiting, Negative for abdominal pain, diarrhea. 18:38 Back: Negative for pain at rest, pain with movement. 18:38 MS/extremity: Negative for swelling, tenderness. 18:38 Skin: Negative for diaphoresis, swelling. 18:38 Neuro: Negative for visual changes, weakness. 18:38 All other systems are negative. Exam: 18:39 Constitutional: The patient appears alert, awake, comfortable. 18:39 Constitutional: The patient appears pale. 18:39 Eyes: Periorbital structures: appear normal. 18:39 ENT: Mouth: is normal, Posterior pharynx: is normal. 18:39 Cardiovascular: Rate: normal, Rhythm: regular. 18:39 Respiratory: the patient does not display signs of respiratory distress, Respirations: normal. 18:39 Abdomen/GI: Bowel sounds: normal, Palpation: abdomen is soft and non-tender. 18:39 Back: pain, is absent, ROM is normal. 18:39 Musculoskeletal/extremity: ROM: intact in all extremities, Pulses: are normal with no appreciated deficits. 18:39 Skin: Appearance: Color: pale, no rash present. 18:39 Neuro: Mentation: is normal, Memory: is normal. 18:39 Psych: Behavior/mood is pleasant, cooperative, Affect is calm. Vital Signs: 16:47 BP 152 / 79; Pulse 83; Resp 18; Temp 98.2(O); Pulse Ox 98% on R/A; Weight 77.11 kg (R); tg Height 5 ft. 6 in. (167.64 cm); Pain 0/10; 18:15 Pulse 72; Pulse Ox 93% on R/A; tg 19:00 BP 132 / 58; Pulse 84; Resp 14; Pulse Ox 94% ; tg 21:05 BP 129 / 75; Pulse 86; Resp 16; Pulse Ox 95% on R/A; Pain 0/10; tg 16:47 Body Mass Index 27.44 (77.11 kg, 167.64 cm) tg MDM: 17:03 Patient medically screened. 19:09 Differential diagnosis: viral gastroenteritis, narcotic w/d. Data reviewed: vital jm signs, nurses notes, old medical records, lab test result(s), and as a result, I will admit patient. Counseling: I had a detailed discussion with the patient and/or guardian regarding: the historical points, exam findings, and any diagnostic results supporting the discharge/admit diagnosis, lab results, the need for further work-up and treatment in the hospital. 20:24 Response to treatment: the patient's symptoms have mildly improved after treatment, cd patient is well hydrated. and as a result, I will admit patient. Physician consultation: Esteban Watters MD was called at 19:15, was contacted at 19:20, regarding admission, to the floor, consult, patient's condition, need to come to ED to see patient, and will see patient in ED, shortly. 09/04 17:35 Order name: BASIC METABOLIC PANEL; Complete Time: 17:47 EDMS 09/05 10:26 Interpretation: Normal Except: CARBON DIOXIDE 20; Dehydration. cd 09/04 17:37 Order name: CBC AUTO DIF, MDIF/RMOR IF IND; Complete Time: 17:47 EDMS 09/05 10:27 Interpretation: Normal Except: PLATELET COUNT 1322; NEUTROPHILS 80.7; Thrombocytosis, cd Mild Left Shift. 09/04 20:05 Order name: CBC W/ MANUAL DIFFERENTIAL; Complete Time: 10:27 EDMS 09/05 10:27 Interpretation: Abnormal: HEMOGLOBIN 9.7; HEMATOCRIT 29.4; PLATELET COUNT 974; cd NEUTROPHIL % (Manual) 89; Anemia, Thrombocytosis, Mild Left Shift. Dispensed Medications: 17:05 Drug: NS 0.9% 1000 ml; Route: IV; Rate: bolus; Site: left antecubital; Delivery: tg [place] [facility]; 17:50 Follow up: IV Status: Completed infusion; IV Intake: 1000ml tg 17:06 Drug: Zofran 4 mg; Route: IVP; Infused Over: 2 mins; Site: left antecubital; tg 17:10 Follow up: Response: Nausea is increased tg 17:22 Drug: Ativan 0.5 mg; Route: IVP; Site: left antecubital; tg 17:40 Follow up: Response: Nausea is decreased tg 17:22 Drug: Phenergan 12.5 mg; Route: IVP; Site: left antecubital; tg 17:39 Follow up: Response: Nausea is decreased tg 18:00 Drug: NS 0.9% 1000 ml; Route: IV; Rate: bolus; Site: left antecubital; Delivery: tg [place] [facility]; 20:26 Follow up: IV Status: Completed infusion; IV Intake: 250ml tg 18:24 Drug: cloNIDine 0.1 mg; Route: PO; tg 20:25 Follow up: Response: No adverse reaction tg 18:25 Drug: NS 0.9% 1000 ml; Route: IV; Rate: bolus; Site: left antecubital; Delivery: tg [place] [facility]; 20:26 Follow up: IV Status: Completed infusion; IV Intake: 1000ml tg 18:30 Drug: Benadryl 25 mg; Route: IVP; Infused Over: 2 mins; Site: left antecubital; tg 19:00 Follow up: Response: Nausea unchanged tg 19:28 CANCELLED (Physician Discretion): Benadryl 50 mg IVP once cd 19:40 Drug: Benadryl 25 mg; Route: IVP; Site: left antecubital; tg 20:25 Follow up: Response: No adverse reaction tg 19:55 Drug: Compazine 10 mg; Route: IVPB; Infused Over: 20 mins; Site: left antecubital; tg Delivery: Pump; 20:25 Follow up: IV Status: Completed infusion; IV Intake: 250ml tg Signatures: Octavio Riley RN RN tg Daley, Chris, MD MD cd Meyer, John, MD MD jm Evens, Kerry, RN RN ke
--- NOTE | 2016-09-04 21:09 | ER NURSING DOCUMENTATION ---
Nurse's Notes [facility] ([place], [place]) Name:Yajaira Jeong Age:61 yrs Sex:Female :1955 Arrival Date:09/04/2016 Time:16:37 Bed4 Private MD:Meño Lewis Diagnosis:Vomiting - Dehydration;Nausea-: Intractable Presentation: 09/04 16:39 Acuity: JUAN CARLOS 4 tg 16:44 Presenting complaint: Patient states: N/V since 10am. No ABD pain, no fever/chills, no tg blood in vomit. Thinks this may be from ceasing narcotic use a few days ago, following hip surgery. Transition of care: patient was not received from another setting of care. Notified ED Physician of patient's arrival and CC Haroldo Gallegos notified. 16:44 Method Of Arrival: Private Vehicle tg 17:06 Care prior to arrival: Pt took 8mg ODT zofran and some compazine. tg Triage Assessment: 16:49 General: Appears uncomfortable, Behavior is cooperative. Pain: Denies pain. tg Cardiovascular:. Respiratory: Respiratory effort is even, unlabored. GI: Reports nausea, vomiting. Derm: Skin is pale. Historical: - Allergies: No known drug Allergies; - Home Meds: 1. Cymbalta oral 2. levothyroxine oral 3. Voltaren Oral - PMHx: THYROID PROBLEM; - PSHx: KNEE SURGERY; HIP SURGERY; gastric bypass; - Tetanus: < 10 years. - Ebola Screening: : Patient negative for fever greater than or equal to 101.5 degrees Fahrenheit, and additional compatible Ebola Virus Disease symptoms. Patient denies exposure to infectious person. Patient denies travel to an Ebola-affected area in the 21 days before illness onset. No symptoms or risks identified at this time. . - Immunization history: Flu Vaccine < 1 year. - Social history: Smoking status: Patient states was never smoker of tobacco. Screenin:50 Infectious Disease Risk Unable to Obtain. Abuse screen: Denies threats or abuse. Denies tg injuries from another. Nutritional screening: No deficits noted. Assessment: 17:10 GI: Pt is actively vomiting bile. tg 17:45 Reassessment: Pt reports feeling "creepy crawlies" over her skin, benadryl requested. tg 18:02 Derm: Skin is pink, warm & dry. tg 18:43 GI: Pt is actively vomiting bile. tg Vital Signs: 16:47 BP 152 / 79; Pulse 83; Resp 18; Temp 98.2(O); Pulse Ox 98% on R/A; Weight 77.11 kg (R); tg Height 5 ft. 6 in. (167.64 cm); Pain 0/10; 18:15 Pulse 72; Pulse Ox 93% on R/A; tg 19:00 BP 132 / 58; Pulse 84; Resp 14; Pulse Ox 94% ; tg 21:05 BP 129 / 75; Pulse 86; Resp 16; Pulse Ox 95% on R/A; Pain 0/10; tg 16:47 Body Mass Index 27.44 (77.11 kg, 167.64 cm) tg ED Course: 16:38 Patient arrived in ED. ama 16:38 Meño Lewis DO is Private Physician. ama 16:39 Triage completed. tg 16:44 Octavio Riley RN is Primary Nurse. tg 16:50 Valuables Remains with patient Patient has correct armband on for positive tg identification. 17:02 Alcides Zarco MD is Attending Physician. jm 17:02 Missed attempts: 20 gauge X 1 in right antecubital area, Bleeding controlled, band aid ke applied, catheter tip intact. 17:05 Inserted peripheral IV: 22 gauge in left antecubital area and blood collected. tg 17:30 Pulse Ox - RN Monitoring Only. tg 19:30 Assisted to bathroom. tg 20:22 Esteban Watters MD is Admitting Physician. cd Administered Medications: 17:05 Drug: NS 0.9% 1000 ml; Route: IV; Rate: bolus; Site: left antecubital; Delivery: tg [place] [facility]; 17:50 Follow up: IV Status: Completed infusion; IV Intake: 1000ml tg 17:06 Drug: Zofran 4 mg; Route: IVP; Infused Over: 2 mins; Site: left antecubital; tg 17:10 Follow up: Response: Nausea is increased tg 17:22 Drug: Ativan 0.5 mg; Route: IVP; Site: left antecubital; tg 17:40 Follow up: Response: Nausea is decreased tg 17:22 Drug: Phenergan 12.5 mg; Route: IVP; Site: left antecubital; tg 17:39 Follow up: Response: Nausea is decreased tg 18:00 Drug: NS 0.9% 1000 ml; Route: IV; Rate: bolus; Site: left antecubital; Delivery: tg [place] [facility]; 20:26 Follow up: IV Status: Completed infusion; IV Intake: 250ml tg 18:24 Drug: cloNIDine 0.1 mg; Route: PO; tg 20:25 Follow up: Response: No adverse reaction tg 18:25 Drug: NS 0.9% 1000 ml; Route: IV; Rate: bolus; Site: left antecubital; Delivery: tg [place] [facility]; 20:26 Follow up: IV Status: Completed infusion; IV Intake: 1000ml tg 18:30 Drug: Benadryl 25 mg; Route: IVP; Infused Over: 2 mins; Site: left antecubital; tg 19:00 Follow up: Response: Nausea unchanged tg 19:28 CANCELLED (Physician Discretion): Benadryl 50 mg IVP once cd 19:40 Drug: Benadryl 25 mg; Route: IVP; Site: left antecubital; tg 20:25 Follow up: Response: No adverse reaction tg 19:55 Drug: Compazine 10 mg; Route: IVPB; Infused Over: 20 mins; Site: left antecubital; tg Delivery: Pump; 20:25 Follow up: IV Status: Completed infusion; IV Intake: 250ml tg Intake: 17:50 IV: 1000ml; Total: 1000ml. tg 20:25 IV: 250ml; Total: 1250ml. tg 20:26 IV: 250ml; Total: 1500ml. tg 20:26 IV: 1000ml; Total: 2500ml. tg Outcome: 20:24 Decision to Admit by Provider. cd 21:05 Admitted to Med/surg accompanied by nurse, via stretcher, with chart. tg 21:05 Condition: improved 21: Report given to CHERYLE Munoz 21:05 Discharge Assessment: Patient awake and alert. Nausea resolved 21:05 Instructed on need to admit 21:09 Patient left the ED. tg Signatures: Octavio Riley RN RN tg Daley, Chris, MD MD cd Meyer, John, MD MD jm Averdick, Andrew, Reg Reg ama Eli Baldwin RN RN ke
[2016-09-04] MEDS: FAMOTIDINE IN SALINE, ISO-OSM 20 MG/50 ML PIGGYBACK IV SCH (22:04)
[2016-09-04] MEDS: POTASSIUM CHLORIDE/NS 1,000 ML IV SCH (22:04)
[2016-09-05] MEDS: POTASSIUM CHLORIDE/NS 1,000 ML IV SCH ×3 (05:55→23:32)
[2016-09-05] MEDS: LEVOTHYROXINE 125 MCG TABLET PO SCH (05:55)
[2016-09-05 06:46] LABS: BASOPHIL# 0.4 X 10^3uL (0.0-0.1); BASOPHILS 3.9 % (0.0-2.0); EOSINOPHILS 0.3 % (0.0-6.0); HEMATOCRIT 31.8 % (36.0-48.0); HEMOGLOBIN 10.7 g/dL (12.0-16.0); LYMPHOCYTES 16.6 % (20.0-40.0); LYMPHOCYTES# 1.7 X 10^3uL (0.8-3.8); MEAN CELL VOLUME 95.3 fL (80.0-100.0); MEAN CORPUS. HGB CONCENTRATION 33.7 g/dL (32.0-36.0); MEAN CORPUSCULAR HEMOGLOBIN 32.1 pg (29.0-35.0); MEAN PLATELET VOLUME 7.5 fL (7.4-10.4); MONOCYTES 6.7 % (2.0-10.0); MONOCYTES# 0.7 X 10^3uL (0.2-1.0); NEUTROPHILS 72.5 % (54.0-75.0); NEUTROPHILS# 7.5 X 10^3uL (2.6-6.7); RED BLOOD COUNT 3.34 X 10^6uL (4.20-6.10); RED CELL DISTRIBUTION WIDTH 14.5 % (11.5-14.5); WHITE BLOOD COUNT 10.3 X 10^3uL (3.9-10.7)
[2016-09-05 06:54] LABS: PLATELET COUNT 1079 X 10^3uL (130-440)
[2016-09-05 06:56] LABS: ALBUMIN 3.8 g/dL (3.5-5.0); ALKALINE PHOSPHATASE 113 U/L (38-126); ALT 31 U/L (9-52); AST 22 U/L (14-36); BILIRUBIN, DIRECT 0.2 mg/dL (0.0-0.4); BILIRUBIN, TOTAL 0.8 mg/dL (0.2-1.3); BLOOD UREA NITROGEN 5 mg/dL (7-17); CHLORIDE 111 mmol/L (98-107); CREATININE 0.6 mg/dL (0.5-1.0); EST GLOMERULAR FILTRATION RATE > 60 mL/min; GLUCOSE 86 mg/dL (70-100); POTASSIUM 3.8 mmol/L (3.5-5.1); SODIUM 139 mmol/L (137-145); TOTAL PROTEIN 6.7 g/dL (6.3-8.2)
[2016-09-05 07:30] LABS: FERRITIN 44 ng/mL (11-264)
--- NOTE | 2016-09-05 07:53 | HISTORY & PHYSICAL ---
DATE OF ADMISSION: 09/04/16 ATTENDING PHYSICIAN: Esteban Watters MD REFERRING PHYSICIAN: Luciano Koch MD PRIMARY CARE PHYSICIAN: Meño Lewis MD ORTHOPEDIC SURGEON: Say Horner MD REASON FOR ADMISSION: Intractable vomiting with dehydration. HISTORY OF PRESENT ILLNESS: The patient is a 61-year-old lady with significant osteoarthritis and required multiple surgeries, most recently 08/17/16 with a right total hip arthroplasty for osteoarthritis with cyst formation and pain. She was hospitalized from 08/17/16-08/21/16 and discharged home on Percocet and her usual medications. She was seen for gastroenteritis by Dr. Lewis on . She was discharged on Zofran and continued to progress and do well until this morning. She had a breakfast of a pop tart and a couple pieces of klein. She did okay until about 10:00-10:30 a.m. Her significant other Janae, at that time left for work and patient started vomiting about every 15 minutes. It was largely green emesis, no blood and no mucous. No coffee ground changes. No abdominal pain prior to emesis. In that she continued to vomit and became more and more dehydrated, she presented to the Emergency Room. She denies fever. There is no cough, cold, congestion. No headache or visual disturbances. No chest pain or palpitations. She has no abdominal pain and no diarrhea. She had a normal bowel movement this morning with no blood or mucous. No dysuria or urinary frequency and remainder of review of systems is otherwise unremarkable. At home, she had taken a Compazine and a Zofran without mitigation of symptoms. In the Emergency Room she received additional Zofran and Phenergen without mitigation of symptoms and then received an IV dose of Compazine with some improvement, though continues to feel queasy. She was noted initially to have markedly abnormal labs, which included a platelet count of 1.3 million and a hemoglobin of 12.5 and most recently had a hemoglobin of 9.7 after surgery. Her white count was 7 with 81% neutrophils and 14% lymphocytes, and it was noted that she had an increased number of platelets by smear. Sodium was 138 with potassium 4.2 and chloride of 102, bicarb of 20 and BUN of 12. Creatinine is 0.8. Her glucose was 123 with a calcium of 12.3. Patient received 3 liters of normal saline and a repeat CBC showed a white count of 6.3 with 89% lymphocytes and hemoglobin had dipped to 9.7 with a platelet count of 974. Because of this, she is being admitted to manage her nausea and emesis along with dehydration. Regarding her recent hip replacement, she has had a gastric bypass and has been treated for the last 2 weeks with nonsteroidal medication of Voltaren 35 mg every 8 hours as needed, and has taken most days, although denies dyspepsia. PAST MEDICAL HISTORY 1. Anxiety. 2. 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 3. Degenerative disk disease in the cervical spine. 4. 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 5. Status post left knee replacement. 6. Right hip replacement. 7. Sacroiliitis and plantar fasciitis. 8. Obesity and is status post Sloan-en-y gastric bypass with marked weight loss of 135 pounds. 9. Glaucoma. 10. Depression. 11. Hypothyroidism. PAST SURGICAL HISTORY 1. Left Achilles tendon rupture repair. 2. Complicated ruptured appendectomy in the . 3. Right hip arthroplasty. 4. Left knee arthroplasty. 5. Prior arthroscopies on both knees. 6. Dilation and curettage and endometrial ablation. 7. Surgery for Mortons neuroma. 8. Gastric bypass in 1999. 9. Right cubital tunnel release. 10. Right scaphoid bone removal. 11. Tonsillectomy. ALLERGIES: No known drug allergies. FAMILY HISTORY: Notable for degenerative disease in her brother who also had hypertension and lung cancer as well as melanoma. Her father at age 91 and had hypothyroidism, squamous cell carcinoma and basal cell carcinoma, atrial fibrillation and was paced and had degenerative joint disease as well as macular degeneration. Her mother at age 78 and had been diagnosed at age 60 with esophageal cancer. She has a niece who was diagnosed with breast cancer at age 37 and 2 sisters, one with atrial fibrillation, degenerative joint disease and hypothyroidism and a second with degenerative disease and hypothyroidism. SOCIAL HISTORY: She does not drink alcohol. She is a former smoker who quit at age 31 and had been 2-3 pack per week from age of 14 to 31. 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 MEDICATIONS Ambien 10 mg at night as needed. Cymbalta 60 mg daily. Oxycodone 5/325 mg tabs 1 tab every 6 hours as needed. Synthroid 125 mcg daily. Zorvolex 35 mg daily. REVIEW OF SYSTEMS: Per history of present illness. PHYSICAL EXAMINATION VITAL SIGNS: Afebrile at 98. Heart initially in the 110s and is decreased to 85- 90 after fluids. Blood pressure in the 120s/70s and respiratory rate 14. She is saturating 94% on room air. GENERAL: She is pleasant but pale and looks fatigued. There is no jaundice, cyanosis, clubbing or lymphadenopathy. HEENT: NECK: Supple. No masses or bruits. CARDIAC: S1, S1 without murmur. RESPIRATORY: Good air entry into the bases. ABDOMEN: Soft in the right upper epigastrium and left upper quadrant, initially there was a fullness and increase bowel sounds that attenuated during examination. No masses were noted. No hepatosplenomegaly. Kidneys are palpable and no masses appreciated. There is no rebound tenderness and otherwise abdominal exam is bland. EXTREMITIES: There is no sacral edema and no pedal edema, with 2+ dorsalis pedis pulses. Capillary refill is delayed at 3 seconds as well. ASSESSMENT 1. Intractable vomiting without nausea, and this does not appear to be related to food. She did eat klein and a pop tart and had biliary colic and was okay for an hour or two after eating this. Her significant Janae had a similar breakfast without difficulty or etiology. She does have a gastric bypass, there is no pain suggestive of an internal hernia. She has been on nonsteroidal. This could be an anastomotic ulcer, although again, there has been no recent dyspepsia. There was acute onset with no headache. Does not have elevated surrogate markers of infection like fever and white count. There is a slight left shift, likely related to retching and dehydration. 2. History of Sloan-en-y gastric bypass, now recently on non-steroidals in postop with concern for perioperative anastomotic ulceration exacerbated by stress as well as non-steroidals. 3. Dehydration. Moderate to severe. She has orders to receive 3 liters with marked improvement and required voiding, but does have delayed capillary refill and still slightly prolonged heart rate over her baseline. 4. Thrombocytosis. She has had intermittent thrombocytosis in the past, although not to the degree noted this evening. A portion of this is related to concentration with dehydration, but will need to be managed and followed as an outpatient and consider further workup for myeloproliferative disorders or causes of chronic inflammation. 5. Anemia related to blood loss from surgery. With patient's gastric bypass and probable poor absorption of vitamins, might considering replacing her iron parenterally during this visit. 6. Status post right hip replacement with osteoarthritis in multiple different joints with the thrombocytosis and the possibility of chronic low-grade inflammation, I would question whether she has gout, pseudo-gout or a rheumatologic condition driving her progressive and debilitating arthritis. 7. Hypothyroidism. Well compensated on Synthroid. Will plan to continue IV fluids. Will use Haldol and Compazine along with Ativan for persistent vomiting. Have started Pepcid for concern for gastric ulceration. Will continue to follow CBC and patient will require follow up and possible workup of thrombocytosis as an outpatient. Will treat with IV iron during the hospitalization this evening and tomorrow as patient will likely have difficulty taking oral iron to improve bone marrow function. Will continue her usual medications as well. MTDD
[2016-09-05] MEDS: ENOXAPARIN SODIUM 40 MG/0.4 ML SYR SUBCUT SCH (08:48)
[2016-09-05] MEDS: HYDROmorphone HCL 1 MG/ML SYR IV PRN ×2 (08:48→16:42)
[2016-09-05] MEDS: FAMOTIDINE IN SALINE, ISO-OSM 20 MG/50 ML PIGGYBACK IV SCH ×2 (08:48→20:48)
--- NOTE | 2016-09-05 08:50 | PROGRESS NOTE: IM APSO ---
Assessment and Plan - Date of Encounter Date of Encounter: 09/05/16 (1) Nausea & vomiting Status: Acute Assessment and plan: may be stress related gastritis exac by nsaids w/ prior gastric bypass, fluids, pepcid, narcotic/tylenol. advance diet as tolerated. did not respond to zofran /phenergan, did improve with ativan/compazine (continue this iteration for now) Current Visit: No (2) S/P total hip arthroplasty Status: Acute Assessment and plan: doing well from PT standpoint/mobility but with increasing pain since holding nsaids, tylenol/dilaudid for now Current Visit: No (3) Hypothyroid Status: Chronic Assessment and plan: compensated Current Visit: No (4) Dehydration Status: Acute Assessment and plan: and acidotic, improving some, increased urine output, continue IVF's for now until PO improves Current Visit: Yes (5) Thrombocytosis Status: Acute Current Visit: Yes (6) Anemia due to blood loss Status: Acute Assessment and plan: exacerbated surgery possible GI (guaiac stools), replaced iron and started pepcid. Current Visit: Yes - Time Spent With Patient Total time spent with greater than 50% in coordination of care (as documented) at patient's floor/unit and/or counseling patient: 16-24 minutes IM: PN Subjective General: good appetite (drank water last nocte without difficulty but this morning with clear diet, made her queasy/nauseated,no emesis yet and no AP. Normal BM this morning (no diarrhea/constipation), no pain, no fever, no chills Cardiovascular: no chest pain, no chest pressure Respiratory: no cough, no sputum, no wheeze Gastrointestinal: nausea, no abdominal pain, no diarrhea, no constipation Musculoskeletal: pain (hip note oscar works well but spoke about Gbypass and nsaids, risk, concerns that this could be related with gastritis and hold nsaids for now.) IM: PN Objective Exam - I&O/Vital Signs I&O: Intake & Output 09/04/16 09/05/16 09/05/16 21:59 05:59 13:59 Intake Total 1450 Output Total 1000 Balance 450 Weight 79.379 kg 82.781 kg Intake: IV 950 Left Antecubital 950 Oral 500 Output: Urine 1000 Other: Urine Appearance Clear Clear Urine Color Yellow Yellow Voiding Method Toilet Toilet Toilet # Voids 2 Vital Signs: Last Vital Signs Temp 36.8 C 09/05/16 06:45 Pulse 77 09/05/16 06:45 Resp 15 09/05/16 08:18 BP 127/66 09/05/16 06:45 Pulse Ox 95 09/05/16 08:18 Oxygen Delivery Method Room Air - Constitutional General appearance: Present: obese - Head Head exam: Present: atraumatic - Eye Eye exam: Present: normal appearance - ENT ENT exam: Present: mucous membranes moist - Neck Neck exam: Present: full ROM. Absent: lymphadenopathy - Respiratory Respiratory exam: Present: CTAB - Cardiovascular Cardiovascular exam: Present: RRR - GI/Abdominal GI/Abdominal exam: Present: diminished bowel sounds, soft. Absent: organomegaly , tenderness - Lab Labs: Laboratory Last Values WBC 10.3 X 10^3uL (3.9-10.7) 09/05/16 06:15 RBC 3.34 X 10^6uL (4.20-6.10) L 09/05/16 06:15 Hgb 10.7 g/dL (12.0-16.0) L 09/05/16 06:15 Hct 31.8 % (36.0-48.0) L 09/05/16 06:15 MCV 95.3 fL (80.0-100.0) 09/05/16 06:15 MCH 32.1 pg (29.0-35.0) 09/05/16 06:15 MCHC 33.7 g/dL (32.0-36.0) 09/05/16 06:15 RDW 14.5 % (11.5-14.5) 09/05/16 06:15 Plt Count 1079 X 10^3uL (130-440) H* 09/05/16 06:15 MPV 7.5 fL (7.4-10.4) 09/05/16 06:15 Total Counted 100 09/04/16 19:40 Neutrophils % 72.5 % (54.0-75.0) 09/05/16 06:15 Neutrophils % (Manual) 89 % (54.0-75.0) H 09/04/16 19:40 Band Neuts % (Manual) 1 % (0.0-1.0) 09/04/16 19:40 Lymphocytes % 16.6 % (20.0-40.0) L 09/05/16 06:15 Lymphocytes % (Manual) 7 % (20.0-40.0) L 09/04/16 19:40 Monocytes % (Manual) 3 % (2.0-10.0) 09/04/16 19:40 Eosinophils % 0.3 % (0.0-6.0) 09/05/16 06:15 Basophils % 3.9 % (0.0-2.0) H 09/05/16 06:15 Neutrophils # 7.5 X 10^3uL (2.6-6.7) H 09/05/16 06:15 Lymphocytes # 1.7 X 10^3uL (0.8-3.8) 09/05/16 06:15 Monocytes 6.7 % (2.0-10.0) 09/05/16 06:15 Monocytes # 0.7 X 10^3uL (0.2-1.0) 09/05/16 06:15 Eosinophils # 0.0 X 10^3uL (0.0-0.4) 09/05/16 06:15 Basophils # 0.4 X 10^3uL (0.0-0.1) H 09/05/16 06:15 Platelet Estimate Increased 09/04/16 19:40 Sodium 139 mmol/L (137-145) 09/05/16 06:15 Potassium 3.8 mmol/L (3.5-5.1) 09/05/16 06:15 Chloride 111 mmol/L (98-107) H 09/05/16 06:15 Carbon Dioxide 18 mmol/L (22-30) L 09/05/16 06:15 BUN 5 mg/dL (7-17) L D 09/05/16 06:15 Creatinine 0.6 mg/dL (0.5-1.0) 09/05/16 06:15 GFR Calculation > 60 mL/min 09/05/16 06:15 Glucose 86 mg/dL (70-100) 09/05/16 06:15 Calcium 9.0 mg/dL (8.4-10.2) 09/05/16 06:15 Ferritin 44 ng/mL (11-264) 09/05/16 06:15 Total Bilirubin 0.8 mg/dL (0.2-1.3) 09/05/16 06:15 Direct Bilirubin 0.2 mg/dL (0.0-0.4) 09/05/16 06:15 AST 22 U/L (14-36) 09/05/16 06:15 ALT 31 U/L (9-52) 09/05/16 06:15 Alkaline Phosphatase 113 U/L (38-126) 09/05/16 06:15 Total Protein 6.7 g/dL (6.3-8.2) 09/05/16 06:15 Albumin 3.8 g/dL (3.5-5.0) 09/05/16 06:15 Quality Questions - VTE Prophylaxis Assessment VTE Present on Admission?: No Patient at risk for venous thromboembolism?: Yes VTE Risk Level: Low Risk VTE Medical Contraindication: N/A- VTE prophylaxsis ord (2) S/P total hip arthroplasty Qualifiers:
[2016-09-05] MEDS: DULOXETINE 30 MG CAPSULE.DR PO SCH (10:08)
[2016-09-05] MEDS ORDERED: IRON SUCROSE COMPLEX 200 MG in NORMAL SALINE 100 ML IV ONE (12:00)
[2016-09-06] MEDS: HYDROmorphone HCL 1 MG/ML SYR IV PRN ×2 (00:57→08:30)
[2016-09-06] MEDS: LEVOTHYROXINE 125 MCG TABLET PO SCH (06:03)
[2016-09-06 07:24] LABS: BLOOD UREA NITROGEN 4 mg/dL (7-17); CALCIUM 9.1 mg/dL (8.4-10.2); CREATININE 0.6 mg/dL (0.5-1.0); EST GLOMERULAR FILTRATION RATE > 60 mL/min
[2016-09-06 07:28] LABS: BASOPHIL# 0.3 X 10^3uL (0.0-0.1); BASOPHILS 4.8 % (0.0-2.0); EOSINOPHILS 3.9 % (0.0-6.0); EOSINOPHILS# 0.2 X 10^3uL (0.0-0.4); HEMATOCRIT 30.6 % (36.0-48.0); HEMOGLOBIN 10.2 g/dL (12.0-16.0); LYMPHOCYTES# 1.8 X 10^3uL (0.8-3.8); MEAN CORPUS. HGB CONCENTRATION 33.1 g/dL (32.0-36.0); MEAN CORPUSCULAR HEMOGLOBIN 31.8 pg (29.0-35.0); MEAN PLATELET VOLUME 6.9 fL (7.4-10.4); MONOCYTES 10.3 % (2.0-10.0); MONOCYTES# 0.6 X 10^3uL (0.2-1.0); PLATELET COUNT 817 X 10^3uL (130-440); RED BLOOD COUNT 3.19 X 10^6uL (4.20-6.10); RED CELL DISTRIBUTION WIDTH 14.1 % (11.5-14.5); WHITE BLOOD COUNT 5.9 X 10^3uL (3.9-10.7)
[2016-09-06 07:52] LABS: CHLORIDE 108 mmol/L (98-107); GLUCOSE 85 mg/dL (70-100); POTASSIUM 4.2 mmol/L (3.5-5.1); SODIUM 138 mmol/L (137-145)
[2016-09-06] MEDS: ENOXAPARIN SODIUM 40 MG/0.4 ML SYR SUBCUT SCH (08:28)
[2016-09-06] MEDS: DULOXETINE 30 MG CAPSULE.DR PO SCH (08:28)
[2016-09-06] MEDS: FAMOTIDINE IN SALINE, ISO-OSM 20 MG/50 ML PIGGYBACK IV SCH (08:29)
--- NOTE | 2016-09-06 10:34 | PROGRESS NOTE: IM APSO ---
Assessment and Plan - Date of Encounter Date of Encounter: 09/06/16 (1) Nausea & vomiting Status: Acute Assessment and plan: may be stress related gastritis exac by nsaids w/ prior gastric bypass, fluids, pepcid, narcotic/tylenol. advance diet as tolerated. did not respond to zofran /phenergan, did improve with ativan/compazine (continue this iteration for now and as outpatient) Current Visit: No (2) S/P total hip arthroplasty Status: Acute Assessment and plan: doing well from PT standpoint/mobility but with increasing pain since holding nsaids, tylenol/dilaudid for now Current Visit: No (3) Hypothyroid Status: Chronic Assessment and plan: compensated Current Visit: No (4) Dehydration Status: Acute Assessment and plan: dehydration and acidosis resolved Current Visit: Yes (5) Thrombocytosis Status: Chronic Assessment and plan: improving, may be from infalmmation/iron deficiency but should be followed and rechecked by Dr. Lewis as could be early myeloprolifertaive (essential thrombocytosis) Current Visit: Yes (6) Anemia due to blood loss Status: Acute Assessment and plan: exacerbated surgery possible GI (guaiac stools), replaced iron and started pepcid. Current Visit: Yes - Time Spent With Patient Total time spent with greater than 50% in coordination of care (as documented) at patient's floor/unit and/or counseling patient: 16-24 minutes IM: PN Subjective General: good appetite (tolerted diet without pain/nausea, some texture sensitivity), no pain, no fever, no chills Cardiovascular: no chest pain, no chest pressure Respiratory: no cough, no sputum, no wheeze Gastrointestinal: no abdominal pain, no nausea, no vomiting, no diarrhea, no constipation Musculoskeletal: pain (hip note oscar works well but spoke about Gbypass and nsaids, risk, concerns that this could be related with gastritis and hold nsaids for now.) IM: PN Objective Exam - I&O/Vital Signs I&O: Intake & Output 09/05/16 09/06/16 09/06/16 21:59 05:59 13:59 Intake Total 2250 2542 200 Output Total 1800 1000 Balance 450 1542 200 Weight 82.781 kg Intake: IV 1250 1991 Left Antecubital 1250 1991 Oral 1000 550 200 Output: Urine 1800 1000 Other: Urine Appearance Clear Clear Urine Color Yellow Yellow Stool Size Moderate Stool Characteristics Brown Voiding Method Toilet Toilet # Voids 3 # Bowel Movements 1 Vital Signs: Last Vital Signs Temp 36.2 C L 09/06/16 06:52 Pulse 65 09/06/16 06:52 Resp 18 09/06/16 09:00 BP 125/68 09/06/16 06:52 Pulse Ox 97 09/06/16 09:00 Oxygen Delivery Method Room Air - Constitutional General appearance: Present: obese - Head Head exam: Present: atraumatic - Eye Eye exam: Present: normal appearance - ENT ENT exam: Present: mucous membranes moist - Neck Neck exam: Present: full ROM. Absent: lymphadenopathy - Respiratory Respiratory exam: Present: CTAB - Cardiovascular Cardiovascular exam: Present: RRR - GI/Abdominal GI/Abdominal exam: Present: diminished bowel sounds, soft. Absent: organomegaly , tenderness - Lab Labs: Laboratory Last Values WBC 5.9 X 10^3uL (3.9-10.7) 09/06/16 05:00 RBC 3.19 X 10^6uL (4.20-6.10) L 09/06/16 05:00 Hgb 10.2 g/dL (12.0-16.0) L 09/06/16 05:00 Hct 30.6 % (36.0-48.0) L 09/06/16 05:00 MCV 96.0 fL (80.0-100.0) 09/06/16 05:00 MCH 31.8 pg (29.0-35.0) 09/06/16 05:00 MCHC 33.1 g/dL (32.0-36.0) 09/06/16 05:00 RDW 14.1 % (11.5-14.5) 09/06/16 05:00 Plt Count 817 X 10^3uL (130-440) H 09/06/16 05:00 MPV 6.9 fL (7.4-10.4) L 09/06/16 05:00 Total Counted 100 09/04/16 19:40 Neutrophils % 50.0 % (54.0-75.0) L 09/06/16 05:00 Neutrophils % (Manual) 89 % (54.0-75.0) H 09/04/16 19:40 Band Neuts % (Manual) 1 % (0.0-1.0) 09/04/16 19:40 Lymphocytes % 31.0 % (20.0-40.0) 09/06/16 05:00 Lymphocytes % (Manual) 7 % (20.0-40.0) L 09/04/16 19:40 Monocytes % (Manual) 3 % (2.0-10.0) 09/04/16 19:40 Eosinophils % 3.9 % (0.0-6.0) 09/06/16 05:00 Basophils % 4.8 % (0.0-2.0) H 09/06/16 05:00 Neutrophils # 3.0 X 10^3uL (2.6-6.7) 09/06/16 05:00 Lymphocytes # 1.8 X 10^3uL (0.8-3.8) 09/06/16 05:00 Monocytes 10.3 % (2.0-10.0) H 09/06/16 05:00 Monocytes # 0.6 X 10^3uL (0.2-1.0) 09/06/16 05:00 Eosinophils # 0.2 X 10^3uL (0.0-0.4) 09/06/16 05:00 Basophils # 0.3 X 10^3uL (0.0-0.1) H 09/06/16 05:00 Platelet Estimate Increased 09/04/16 19:40 Sodium 138 mmol/L (137-145) 09/06/16 05:00 Potassium 4.2 mmol/L (3.5-5.1) 09/06/16 05:00 Chloride 108 mmol/L (98-107) H 09/06/16 05:00 Carbon Dioxide 23 mmol/L (22-30) 09/06/16 05:00 BUN 4 mg/dL (7-17) L 09/06/16 05:00 Creatinine 0.6 mg/dL (0.5-1.0) 09/06/16 05:00 GFR Calculation > 60 mL/min 09/06/16 05:00 Glucose 85 mg/dL (70-100) 09/06/16 05:00 Calcium 9.1 mg/dL (8.4-10.2) 09/06/16 05:00 Ferritin 44 ng/mL (11-264) 09/05/16 06:15 Total Bilirubin 0.8 mg/dL (0.2-1.3) 09/05/16 06:15 Direct Bilirubin 0.2 mg/dL (0.0-0.4) 09/05/16 06:15 AST 22 U/L (14-36) 09/05/16 06:15 ALT 31 U/L (9-52) 09/05/16 06:15 Alkaline Phosphatase 113 U/L (38-126) 09/05/16 06:15 Total Protein 6.7 g/dL (6.3-8.2) 09/05/16 06:15 Albumin 3.8 g/dL (3.5-5.0) 09/05/16 06:15 (2) S/P total hip arthroplasty Qualifiers:
--- NOTE | 2016-09-06 10:44 | DC SUMMARY: IM Note ---
Discharge Summary: IM/Peds Provider: Date of Admission: 09/04/16 Admitting Provider: DOREEN HIGH Attending Provider: PINA LEWIS DO Discharging Provider: DOREEN HIGH Primary Care Provider: Discharge Date: 09/06/16 - Diagnosis (1) Nausea & vomiting Status: Acute (2) S/P total hip arthroplasty Status: Acute Qualifiers: (3) Hypothyroid Status: Chronic (4) Dehydration Status: Acute (5) Thrombocytosis Status: Chronic (6) Anemia due to blood loss Status: Acute - Time Spent with Patient Total time spent providing and/or coordinating discharge services: Discharge - Patient/Caregiver Discharge Instructions Activity Level: as directed by Dr. Horner/PT s/p hip arthroplasty Diet: cardiac prudent, low fat for now Follow up: PINA LEWIS DO [Primary Care Provider] - 7 Days Overall discharge status: patient is progressing back to baseline Home Medications: LORazepam [Ativan*] 1 mg PO Q4H PRN #15 tab PRN Reason: Nausea/Vomiting, Can'T Take Po proCHLORPERazine EDISYLATE [Compazine*] 10 mg PO Q6H PRN #15 tab PRN Reason: Nausea/Vomiting, Use 1st Esomeprazole Magnesium [Nexium] 40 mg PO BEFORE BREAKFAST PRN #30 capsule. PRN Reason: acid reflux oxyCODONE HCL/ACETAMINOPHEN [Percocet 5-325 mg Tablet] 1 - 2 tab PO Q6H PRN #60 tablet PRN Reason: Pain, Moderate Disposition: HOME, SELF-CARE Discharge Summary Data - Medication History Medication History: Home Medications Gabapentin [Neurontin*] 300 mg PO HS PRN 08/18/16 Levothyroxine [Synthroid] 125 mcg PO BEFORE BREAKFAST 08/18/16 Zolpidem Tartrate [Ambien] 10 mg PO HS PRN 08/18/16 Ascorbic Acid [Vitamin C*] 500 mg PO BID tablet 08/21/16 Enoxaparin Sodium [LOVENOX 40mg/0.4mL*] 40 mg SUBCUT DAILY #10 syr 08/21/16 Folic Acid [Folic Acid*] 1 mg PO DAILY tab 08/21/16 oxyCODONE HCL/ACETAMINOPHEN [Percocet 5-325 mg Tablet] 1 - 2 tab PO Q6H PRN #60 tablet 08/21/16 Acyclovir [Zovirax] 200 mg PO TID PRN 09/05/16 Duloxetine [Cymbalta*] 60 mg PO DAILY 09/05/16 Esomeprazole Magnesium [Nexium] 40 mg PO BEFORE BREAKFAST PRN 09/05/16 Glucosa Anglin 2Kcl/Chondroitin Anglin [Glucosamine & Chondroitin Cap] 1 cap PO DAILY Inpatient Medications 09/04/16 20:39 HYDROmorphone HCL [Dilaudid] 1 mg IV Q4H PRN Haloperidol [Haldol] 2.5 mg IV Q4H PRN LORazepam [Ativan] 1 mg IV Q4H PRN proCHLORPERazine EDISYLATE [Compazine] 10 mg IV Q6H PRN 09/04/16 21:00 Famotidine in Saline, Iso-Osm [Pepcid Injection] 20 mg IV BID 09/05/16 06:30 Levothyroxine [Synthroid] 125 mcg PO DAILY@62909/05/16 09:00 Duloxetine [Cymbalta] 60 mg PO DAILY Procedures and tests throughout hospitalization: Completed Lab Orders 09/05/16 06:15 FERRITIN [CHEM] Routine 09/06/16 05:00 BMP [BASIC METABOLIC PANEL] [CHEM] AMDRAW CBC AUTO DIF, MDIF/RMOR IF IND [HEM] AMDRAW Pending Orders 09/04/16 20:39 HYDROmorphone HCL [Dilaudid] 1 mg IV Q4H PRN Haloperidol [Haldol] 2.5 mg IV Q4H PRN LORazepam [Ativan] 1 mg IV Q4H PRN proCHLORPERazine EDISYLATE [Compazine] 10 mg IV Q6H PRN 09/04/16 21:00 Famotidine in Saline, Iso-Osm [Pepcid Injection] 20 mg IV BID 09/05/16 06:15 RETICULOCYTE [SEND] AMDRAW 09/05/16 06:30 Levothyroxine [Synthroid] 125 mcg PO DAILY@30 09/05/16 09:00 Guaiac [OCCULT BLOOD (1-3 SAMPLES)] [RM] Duloxetine [Cymbalta] 60 mg PO DAILY 09/06/16 Breakfast Regular [DIET] Labs on day of discharge: Labs from last 24 hours 09/06/16 05:00 WBC 5.9 RBC 3.19 L Hgb 10.2 L Hct 30.6 L MCV 96.0 MCH 31.8 MCHC 33.1 RDW 14.1 Plt Count 817 H MPV 6.9 L Neutrophils % 50.0 L Lymphocytes % 31.0 Eosinophils % 3.9 Basophils % 4.8 H Neutrophils # 3.0 Lymphocytes # 1.8 Monocytes 10.3 H Monocytes # 0.6 Eosinophils # 0.2 Basophils # 0.3 H Sodium 138 Potassium 4.2 Chloride 108 H Carbon Dioxide 23 BUN 4 L Creatinine 0.6 GFR Calculation > 60 Glucose 85 Calcium 9.1 - Impressions Admitted for dehydration with intractable vomiting. Acidotic. Received fluids with marked improvement and then tolerated PO diet with compazine/ativan (did not respond to zofran/phenergan). Noted thrombocytosis, likely iron deficiency/ inflammatory exacerbated but possible early myeloproliferative and recommend f/ u Dr. Lewis. Some of emesis likley nsaid on g bypass related, minimize nsaids and use h2 jose regularly. Anemia, replaced iron parenterally with g bypass, likely poor absorption orally w/ complications gastritis/constipation. IM: Discharge Physical Exam - I&O/Vital Signs I&O: Intake & Output 09/05/16 09/06/16 09/06/16 21:59 05:59 13:59 Intake Total 2250 2542 200 Output Total 1800 1000 Balance 450 1542 200 Weight 82.781 kg Intake: IV 1250 1991 Left Antecubital 1250 1991 Oral 1000 550 200 Output: Urine 1800 1000 Other: Urine Appearance Clear Clear Urine Color Yellow Yellow Stool Size Moderate Stool Characteristics Brown Voiding Method Toilet Toilet # Voids 3 # Bowel Movements 1 Vital Signs: Last Vital Signs Temp 36.2 C L 09/06/16 06:52 Pulse 65 09/06/16 06:52 Resp 18 09/06/16 09:00 BP 125/68 09/06/16 06:52 Pulse Ox 97 09/06/16 09:00 Oxygen Delivery Method Room Air - Constitutional General appearance: Present: obese - Head Head exam: Present: atraumatic - Eye Eye exam: Present: normal appearance - ENT ENT exam: Present: mucous membranes moist - Neck Neck exam: Present: full ROM. Absent: lymphadenopathy - Respiratory Respiratory exam: Present: CTAB - Cardiovascular Cardiovascular exam: Present: RRR - GI/Abdominal GI/Abdominal exam: Present: diminished bowel sounds, soft. Absent: organomegaly , tenderness
[2016-09-06 11:00] VITALS: BP 123/65; PULSE 63; RESP 16; TEMP 97.7; O2SAT 95
[2016-09-08 15:42] LABS: PLATELET COUNT 1322 X 10^3uL (130-440)
== END 2016-09-06 10:48 | disposition home or self-care (01) ==
LOC: ER 16:37 → IN 20:33
PROVIDERS: ADMIT Hospitalist; ATTEND Family Medicine
DX: R11.2 Nausea with vomiting, unspecified (principal); E86.0 Dehydration; Z96.641 Presence of right artificial hip joint; D50.0 Iron deficiency anemia secondary to blood loss (chronic); D69.6 Thrombocytopenia, unspecified; M15.9 Polyosteoarthritis, unspecified; Z98.84 Bariatric surgery status; E03.9 Hypothyroidism, unspecified; F32.9 Major depressive disorder, single episode, unspecified; Z79.899 Other long term (current) drug therapy
CPT/HCPCS: 36415; 80048; 80076; 82728; 85007; 85025; 85027; 85045; 96361; 96365; 96366; 96372; 96375; 96376; 99285; G0378; J1170; J1200; J1650; J1756; J2060; J2405; J2550; J3480; J7050